=== PATIENT | female | born 1935 | race Caucasian/White ===

== ENCOUNTER 2016-09-25 09:40 | Emergency (ER) | payer MEDICARE, BC ==
[2016-09-25] MEDS ORDERED: HYDROmorphone HCL 1 MG/ML SYR ONE ×2 (10:13→11:05)
[2016-09-25 10:40] LABS: BASOPHILS 0.5 % (0.0-2.0); EOSINOPHILS# 0.1 X 10^3uL (0.0-0.4); HEMATOCRIT 40.1 % (36.0-48.0); HEMOGLOBIN 13.6 g/dL (12.0-16.0); LYMPHOCYTES 18.3 % (20.0-40.0); LYMPHOCYTES# 1.1 X 10^3uL (0.8-3.8); MEAN PLATELET VOLUME 7.7 fL (7.4-10.4); MONOCYTES 6.1 % (2.0-10.0); MONOCYTES# 0.4 X 10^3uL (0.2-1.0); NEUTROPHILS 74.1 % (54.0-75.0); NEUTROPHILS# 4.1 X 10^3uL (2.6-6.7); PLATELET COUNT 289 X 10^3uL (130-440); RED BLOOD COUNT 4.14 X 10^6uL (4.20-6.10); RED CELL DISTRIBUTION WIDTH 13.4 % (11.5-14.5); WHITE BLOOD COUNT 5.7 X 10^3uL (3.9-10.7)
[2016-09-25 10:43] LABS: ALBUMIN 4.2 g/dL (3.5-5.0); ALKALINE PHOSPHATASE 61 U/L (38-126); ALT 66 U/L (9-52); AST 57 U/L (14-36); BILIRUBIN, DIRECT 0.4 mg/dL (0.0-0.4); BILIRUBIN, TOTAL 1.2 mg/dL (0.2-1.3); BLOOD UREA NITROGEN 17 mg/dL (7-17); CALCIUM 9.6 mg/dL (8.4-10.2); CHLORIDE 92 mmol/L (98-107); CREATININE 0.6 mg/dL (0.5-1.0); GLUCOSE 97 mg/dL (70-100); LIPASE 367 U/L (23-300); POTASSIUM 3.4 mmol/L (3.5-5.1); SODIUM 132 mmol/L (137-145); TOTAL PROTEIN 7.2 g/dL (6.3-8.2)
[2016-09-25 12:16] LABS: URINE MUCUS NONE SEEN (Up to 25%); URINE RBC NONE SEEN (0-5/hpf)
--- NOTE | 2016-09-25 12:19 | CT REPORT ---
Radiology report CT abdomen pelvis with contrast Study dated September 25, 2016 PROCEDURE: IV contrast was administered without complication. Imaging to the abdomen and pelvis was p erformed. CLINICAL HISTORY: Epigastric prominence, irritable bowel syndrome FINDINGS: There are no prior studies. The gallbladder is absent. Within the right lobe of the liver, posteriorly there is an oval hyperdens e area measuring 27 x 16 mm. This could be a hemangioma but is somewhat indeterminate. The remainder of the liver is unremarkable. The spleen, pancreas, adrenal glands, and kidneys appear normal. No hyd ronephrosis. Common bile duct is prominent, but probably within normal limits for the patient's age a nd postcholecystectomy state. Lung bases are clear. The aorta is normal in size. No adenopathy, free fluid, or free air. The bladde r is unremarkable. The uterus appears absent. The adnexal regions appear normal. Minimally dilated fluid-filled small bowel loops in the right side of the pelvis are noted. Bowel is otherwise unremarkable except for sigmoid diverticulosis. No definitive findings of acute diverticuli tis, or obstruction. There is normal alignment to the lumbar spine. The epigastric prominence likely corresponds to the superficial abdominal aorta, which is normal in s ize but shows moderate atherosclerotic change. IMPRESSION: Oval enhancing mass in the right lobe of the liver possibly hemangioma but somewhat indet erminate. This measures 27 x 16 mm. Minimally prominent fluid-filled small bowel loops in the right side of the pelvis, but no evidence f or bowel obstruction. Diverticulosis without acute diverticulitis. Report called to Dr. jacobs. Final Electronic Signature: This report was electronically signed by Lanre Muñoz MD on 09/25/2016 1 2:17 PM. oren /
[2016-09-25 12:31] LABS: URINE APPEARANCE SLIGHTLY CLOUDY; URINE COLOR YELLOW
[2016-09-25 12:32] LABS: URINE BILIRUBIN NEGATIVE (NEGATIVE); URINE BLOOD NEGATIVE (NEGATIVE); URINE GLUCOSE NORMAL (NEGATIVE); URINE KETONE NEGATIVE (NEGATIVE); URINE LEUKOCYTE ESTERASE 25 WBC/uL (1+) (NEGATIVE); URINE NITRITE POSITIVE (NEGATIVE); URINE PH 5.5 (5-7); URINE PROTEIN NEGATIVE (NEG - TRACE); URINE SQUAMOUS EPITHELIAL CELL 0-5/hpf (<= 15/hpf); URINE UROBILINOGEN NORMAL (NEG-1mg/dL)
--- NOTE | 2016-09-25 12:55 | ER NURSING DOCUMENTATION ---
Nurse's Notes [facility] Name:Kaylie Goldman Age:81 yrs Sex:Female :1935 Arrival Date:09/25/2016 Time:09:40 Bed4 Private MD:Irene Arias Diagnosis:Abdominal Pain, Epigastric Presentation: 09/25 09:43 Presenting complaint: Patient states: ABD pain, "feels like a golfball moving up and tg down." Chronic pain in this area, but now it is worse. Transition of care: patient was not received from another setting of care. 09:43 Acuity: MARIE 2 tg 09:43 Method Of Arrival: Private Vehicle tg Triage Assessment: 09:45 General: Appears slender, uncomfortable, Behavior is cooperative, pleasant. Pain: tg Complains of pain in left upper quadrant. Neuro: Level of Consciousness is awake, alert. Cardiovascular: Capillary refill < 3 seconds. Respiratory: Airway is patent Respiratory effort is even, unlabored. GI: Reports upper abdominal pain, normal bowel habits, Denies constipation, diarrhea, intolerance of fluids, intolerance of food, nausea, vomiting. Derm: Skin is pink, warm & dry. Historical: - Allergies: Sulfa (Sulfonamide Antibiotics); Lidoderm; PAROXETINE DERIVATIVES; - Home Meds: 1. eszopiclone oral 2. sodium chloride oral 3. Lisinopril Oral 4. polyethylene glycol 3350 oral 5. MVI - PMHx: pseudophakia; chronic LUQ pain; IBS; gastroparesis; HTN; - PSHx: None; - Tetanus: < 10 years. - Ebola Screening: : Patient negative for fever greater than or equal to 101.5 degrees Fahrenheit, and additional compatible Ebola Virus Disease symptoms. Patient denies exposure to infectious person. Patient denies travel to an Ebola-affected area in the 21 days before illness onset. No symptoms or risks identified at this time. . - Immunization history: Flu Vaccine < 1 year. - Social history: Smoking status: Patient states was never smoker of tobacco. Screenin:38 Infectious Disease Risk Unable to Obtain. Abuse screen: Denies threats or abuse. Denies tg injuries from another. Nutritional screening: Had unintentional weight loss of 10 pounds or more. Assessment: 12:11 Reassessment: Pt is feeling much better, but restless. Walking in room with family tg assistance. . 09/26 13:38 Reassessment: Prescription called in to [facility] for Keflex [address] amari Jerez. Vital Signs: 09/25 09:48 BP 156 / 75; Pulse 76; Resp 22; Temp 97.6(O); Pulse Ox 96% ; Weight 39.92 kg (R); tg Height 5 ft. 3 in. (160.02 cm); Pain 8/10; 12:52 BP 140 / 76; Pulse 74; Resp 16; Pulse Ox 93% on R/A; Pain 3/10; tg 09:48 Body Mass Index 15.59 (39.92 kg, 160.02 cm) tg ED Course: 09:40 Patient arrived in ED. ds 09:41 Irene Arias MD is Private Physician. ds 09:42 Alistair Frank RN is Primary Nurse. tg 09:44 Triage completed. tg 09:53 EKG done. (by ED staff). Reviewed by Marlon Reyes MD. tg 10:03 Marlon Reyes MD is Attending Physician. sc 10:26 Inserted peripheral IV: 20 gauge in left antecubital area and blood collected. Oxygen tg Oxygen administration via nasal cannula @ 2L/min. 10:39 Valuables Remains with patient Side rails up X 1. Adult w/ patient. Cardiac Monitoring tg On for Nurse Monitoring only. Pulse Ox - RN Monitoring Only. Diet: Patient is NPO. 11:37 Patient moved to [place]. ms 11:56 Patient moved back from [place]. ms 12:17 Irene Arias MD is Referral Physician. sc Administered Medications: 10:20 Drug: Dilaudid 0.5 mg; Route: IVP; Site: left antecubital; tg 10:32 Follow up: Response: Pain is decreased tg 10:26 Drug: NS 0.9% 1000 ml; Route: IV; Rate: 30 ml/hr; Site: left antecubital; tg 12:49 Follow up: IV Status: Completed infusion; IV Intake: 60ml tg 11:01 Drug: Dilaudid 0.5 mg; Route: IVP; Site: left antecubital; tg 12:32 Follow up: Response: Pain is decreased tg 11:15 Drug: NS 0.9% 1000 ml; Route: IV; Rate: 150 ml/hr; Site: left antecubital; Delivery: tg [place] Tubing; 12:49 Follow up: IV Status: Completed infusion; IV Intake: 500ml tg Intake: 12:49 IV: 60ml; Total: 60ml. tg 12:49 IV: 500ml; Total: 560ml. tg Output: 12:50 Urine: 300ml (Voided); Total: 300ml. tg Outcome: 12:19 Discharge ordered by . de 12:52 Discharged to home ambulatory, with family. tg 12:52 Condition: stable 12:52 Discharge Assessment: Patient awake, alert and oriented x 3. No cognitive and/or functional deficits noted. Patient verbalized understanding of disposition instructions. 12:52 Instructed on discharge instructions, follow up and referral plans. 12:52 IV D/Anthony 12:54 Patient left the ED. tg 09/26 13:38 Discharge F/U Call: Spoke with: patient. guardian of pt. Overall Care on a scale of ma 1-10 with 10 being the best care, you rate our care as: Other comments: Care was very good per family member Pt very [place] and unable to speak on phone Rx called in and daughter instructed on medication and UTI Specific RX noted on chart Signatures: Alistair Frank RN RN Yudy Kuo RN RN amari Dent, Michelle, Reg Reg Marlon Manzo MD MD de Khadijah Claudio ms
--- NOTE | 2016-09-25 12:55 | ER PHYSICIAN DOCUMENTATION ---
Physician Documentation [facility] Name:Kaylie Goldman Age:81 yrs Sex:Female :1935 Arrival Date:09/25/2016 Time:09:40 Bed4 Private MD:Irene Arias ED, Scott Disposition: 09/25/16 12:19 Discharged to Home/Self Care. Impression: Abdominal Pain, Epigastric. - Condition is Good. - Discharge Instructions: ABDOMINAL PAIN, Unknown Cause, (Female). - Medical Reconciliation form form. - Follow up: Irene Arias MD; When: 2 - 3 days; Reason: Worsening of condition, Continuance of care. - Problem is an ongoing problem. - Symptoms have improved. HPI: 09/25 12:11 This 81 yrs old Female presents to ER via Private Vehicle with complaints of sc Abdominal Pain. 12:11 The patient presents with abdominal pain in the left upper quadrant. Onset: The sc symptoms/episode began/occurred 50 year(s) ago, and became worse last night. The symptoms do not radiate. Associated signs and symptoms: Pertinent positives: constipation, epigastric knot with pain. The symptoms are described as vague. Modifying factors: The symptoms are alleviated by nothing. The patient has experienced similar episodes in the past, chronically. The patient has been recently seen by a physician: the patient's primary care provider. multiple workups, IBS with constipation, gastroparesis, anxiety, narcotic dependence in past. Historical: - Allergies: Sulfa (Sulfonamide Antibiotics); Lidoderm; PAROXETINE DERIVATIVES; - Home Meds: 1. eszopiclone oral 2. sodium chloride oral 3. Lisinopril Oral 4. polyethylene glycol 3350 oral 5. MVI - PMHx: pseudophakia; chronic LUQ pain; IBS; gastroparesis; HTN; - PSHx: None; - Tetanus: < 10 years. - Ebola Screening: : Patient negative for fever greater than or equal to 101.5 degrees Fahrenheit, and additional compatible Ebola Virus Disease symptoms. Patient denies exposure to infectious person. Patient denies travel to an Ebola-affected area in the 21 days before illness onset. No symptoms or risks identified at this time. . - Immunization history: Flu Vaccine < 1 year. - Social history: Smoking status: Patient states was never smoker of tobacco. ROS: 12:13 Constitutional: Negative for fever, chills, and weight loss. sc Eyes: Negative for injury, pain, redness, and discharge. ENT: Negative for injury, pain, and discharge. Neck: Negative for injury, pain, and swelling. Cardiovascular: Negative for chest pain, palpitations, and edema. Respiratory: Negative for shortness of breath, cough, wheezing, and pleuritic chest pain. Back: Negative for injury and pain. MS/Extremity: Negative for injury and deformity. Skin: Negative for injury, rash, and discoloration. 12:13 Neuro: Negative for headache, weakness, numbness, tingling, and seizure. sc 12:13 Abdomen/GI: Positive for abdominal pain. 12:13 Psych: Positive for anxiety. Exam: Constitutional: This is a well developed, well nourished patient who is awake, alert, and in no acute distress. Head/Face: Normocephalic, atraumatic. Eyes: Pupils equal round and reactive to light, extra-ocular motions intact. Lids and lashes normal. Conjunctiva and sclera are non-icteric and not injected. Cornea within normal limits. Periorbital areas with no swelling, redness, or edema. ENT: Nares patent. No nasal discharge, no septal abnormalities noted. Tympanic membranes are normal and external auditory canals are clear. Oropharynx with no redness, swelling, or masses, exudates, or evidence of obstruction, uvula midline. Mucous membranes moist. Neck: Trachea midline, no thyromegaly or masses palpated, and no cervical lymphadenopathy. Supple, full range of motion without nuchal rigidity, or vertebral point tenderness. No meningismus. Chest/axilla: Normal chest wall appearance and motion. Nontender with no deformity. No lesions are appreciated. Cardiovascular: Regular rate and rhythm with a normal S1 and S2. No gallops, murmurs, or rubs. Normal PMI, no JVD. No pulse deficits. Respiratory: Lungs have equal breath sounds bilaterally, clear to auscultation and percussion. No rales, rhonchi or wheezes noted. No increased work of breathing, no retractions or nasal flaring. Back: No spinal tenderness. No costovertebral tenderness. Full range of motion. 12:13 Skin: Warm, dry with normal turgor. Normal color with no rashes, no lesions, and no sc evidence of cellulitis. 12:13 Abdomen/GI: Inspection: abdomen appears normal, Bowel sounds: normal, Palpation: rebound tenderness, is not appreciated, no appreciated organomegaly, aorta palpable, grossly nl, identified as knot in patient who recently lost 10 pounds, Liver: no appreciated palpable abnormalities. Vital Signs: 09:48 BP 156 / 75; Pulse 76; Resp 22; Temp 97.6(O); Pulse Ox 96% ; Weight 39.92 kg (R); tg Height 5 ft. 3 in. (160.02 cm); Pain 8/10; 12:52 BP 140 / 76; Pulse 74; Resp 16; Pulse Ox 93% on R/A; Pain 3/10; tg 09:48 Body Mass Index 15.59 (39.92 kg, 160.02 cm) tg MDM: 10:54 Patient medically screened. wi 12:14 Differential diagnosis: AAA, bowel obstruction, gastritis, Irritable bowel syndrome. wi Data reviewed: vital signs, nurses notes, old medical records, lab test result(s), radiologic studies, CT scan, and as a result, I will discharge patient. Counseling: I had a detailed discussion with the patient and/or guardian regarding: the historical points, exam findings, and any diagnostic results supporting the discharge/admit diagnosis, lab results, radiology results, the need for outpatient follow up, with the patient's primary care provider. 09/25 10:42 Order name: CBC AUTO DIF, MDIF/RMOR IF IND; Complete Time: 10:55 EDGA 09/25 10:54 Interpretation: Normal. wi 09/25 10:44 Order name: LACTATE; Complete Time: 10:55 EDGA 09/25 10:54 Interpretation: Normal. wi 09/25 10:44 Order name: BASIC METABOLIC PANEL; Complete Time: 10:55 EDMS 09/25 10:54 Interpretation: Abnormal: SODIUM 132; POTASSIUM 3.4. wi 09/25 10:44 Order name: HEPATIC PANEL; Complete Time: 10:55 EDMS 09/25 10:54 Interpretation: Abnormal: ALT 66; AST 57. wi 09/25 10:44 Order name: LIPASE; Complete Time: 10:55 EDGA 09/25 10:55 Interpretation: Abnormal: LIPASE 367. wi 09/25 12:32 Order name: UA W/ MICRO -CULTURE IF IND; Complete Time: 12:37 EDMS 09/25 12:20 Order name: CAT SCAN; ABD/PEL W 70081; Complete Time: 12:37 EDMS 09/25 10:00 Order name: NPO; Complete Time: 10:25 tg 09/25 10:26 Order name: Oxygen; Complete Time: 10:26 tg 09/25 11:02 Order name: 12-lead EKG; Complete Time: 11:02 tg Dispensed Medications: 10:20 Drug: Dilaudid 0.5 mg; Route: IVP; Site: left antecubital; tg 10:32 Follow up: Response: Pain is decreased tg 10:26 Drug: NS 0.9% 1000 ml; Route: IV; Rate: 30 ml/hr; Site: left antecubital; tg 12:49 Follow up: IV Status: Completed infusion; IV Intake: 60ml tg 11:01 Drug: Dilaudid 0.5 mg; Route: IVP; Site: left antecubital; tg 12:32 Follow up: Response: Pain is decreased tg 11:15 Drug: NS 0.9% 1000 ml; Route: IV; Rate: 150 ml/hr; Site: left antecubital; Delivery: tg [place] Tubing; 12:49 Follow up: IV Status: Completed infusion; IV Intake: 500ml tg Signatures: Alistair Farnk RN RN tg Marlon Reyes MD MD wi
== END 2016-09-25 12:54 | disposition home or self-care (01) ==
LOC: ER 09:40
DX: R10.13 Epigastric pain (principal); R94.5 Abnormal results of liver function studies; N39.0 Urinary tract infection, site not specified; B96.1 Klebsiella pneumoniae [K. pneumoniae] as the cause of diseases classified elsewhere; R93.2 Abnormal findings on diagnostic imaging of liver and biliary tract; I49.1 Atrial premature depolarization; I10 Essential (primary) hypertension; Z79.899 Other long term (current) drug therapy
CPT/HCPCS: 74177; 80048; 80076; 81001; 83605; 83690; 85025; 87077; 87086; 87186; 93005; 96361; 96374; 96376; 99285; J1170

== ENCOUNTER 2016-10-10 11:17 | Observation (INO) | payer MEDICARE, BC ==
[2016-10-10] MEDS ORDERED: HYDROmorphone HCL 1 MG/ML SYR ONE ×2 (11:47→12:04)
[2016-10-10 11:57] LABS: ALBUMIN 4.3 g/dL (3.5-5.0); ALKALINE PHOSPHATASE 232 U/L (38-126); ALT 287 U/L (9-52); AST 159 U/L (14-36); BASOPHILS 0.4 % (0.0-2.0); BILIRUBIN, DIRECT 0.2 mg/dL (0.0-0.4); BILIRUBIN, TOTAL 1.6 mg/dL (0.2-1.3); BLOOD UREA NITROGEN 19 mg/dL (7-17); CALCIUM 9.5 mg/dL (8.4-10.2); CHLORIDE 93 mmol/L (98-107); CREATININE 0.7 mg/dL (0.5-1.0); EOSINOPHILS# 0.1 X 10^3uL (0.0-0.4); GLUCOSE 115 mg/dL (70-100); HEMATOCRIT 39.7 % (36.0-48.0); HEMOGLOBIN 13.6 g/dL (12.0-16.0); LIPASE 223 U/L (23-300); LYMPHOCYTES 21.1 % (20.0-40.0); LYMPHOCYTES# 1.5 X 10^3uL (0.8-3.8); MEAN CELL VOLUME 97.9 fL (80.0-100.0); MEAN CORPUS. HGB CONCENTRATION 34.3 g/dL (32.0-36.0); MEAN CORPUSCULAR HEMOGLOBIN 33.6 pg (29.0-35.0); MEAN PLATELET VOLUME 7.9 fL (7.4-10.4); MONOCYTES 6.2 % (2.0-10.0); MONOCYTES# 0.4 X 10^3uL (0.2-1.0); NEUTROPHILS 71.3 % (54.0-75.0); PLATELET COUNT 322 X 10^3uL (130-440); POTASSIUM 3.7 mmol/L (3.5-5.1); RED BLOOD COUNT 4.06 X 10^6uL (4.20-6.10); RED CELL DISTRIBUTION WIDTH 13.9 % (11.5-14.5); SODIUM 128 mmol/L (137-145); TOTAL PROTEIN 7.2 g/dL (6.3-8.2)
[2016-10-10 13:46] LABS: URINE MUCUS NONE SEEN (Up to 25%); URINE RBC NONE SEEN (0-5/hpf); URINE SQUAMOUS EPITHELIAL CELL NONE SEEN (<= 15/hpf); URINE WBC NONE SEEN (0-4/hpf)
[2016-10-10 13:56] LABS: URINE APPEARANCE CLEAR; URINE BACTERIA NONE SEEN (<10/hpf); URINE BILIRUBIN NEGATIVE (NEGATIVE); URINE BLOOD TRACE (NEGATIVE); URINE COLOR YELLOW; URINE GLUCOSE NORMAL (NEGATIVE); URINE KETONE 5mg/dL (NEGATIVE); URINE LEUKOCYTE ESTERASE NEGATIVE (NEGATIVE); URINE NITRITE NEGATIVE (NEGATIVE); URINE PROTEIN NEGATIVE (NEG - TRACE); URINE SPECIFIC GRAVITY 1.015 (0.001-1.035); URINE SPERM NONE SEEN; URINE UROBILINOGEN 0.2mg/dL (Normal) (NEG-1mg/dL)
[2016-10-10] MEDS ORDERED: LORazepam 2 MG/ML INJ ONE (14:43)
--- NOTE | 2016-10-10 15:04 | ER PHYSICIAN DOCUMENTATION ---
Physician Documentation [facility] Name:Kaylie Goldman Age:81 yrs Sex:Female :1935 Arrival Date:10/10/2016 Time:11:17 Bed4 Private MD:Irene Arias ED, Scott Disposition: 10/10/16 14:45 Admit ordered for Andrés Vasquez. Preliminary diagnosis are Hyponatremia, Abnormal Level of Alkaline Phosphatase. - Bed requested for Medical/Surgical. - Condition is Fair. - Problem is an ongoing problem. - Symptoms have improved. 23 HR OBS Yes HPI: 10/10 14:25 This 81 yrs old Female presents to ER with complaints of Abdominal Pain. sc 14:25 The patient presents with abdominal pain that is diffuse. Onset: The symptoms/episode sc began/occurred at an unknown time. The symptoms do not radiate. Associated signs and symptoms: Pertinent positives: anorexia, nausea. The symptoms are described as crampy. The patient has experienced similar episodes in the past, chronically. Historical: - Allergies: Sulfa (Sulfonamide Antibiotics); Lidoderm; PAROXETINE DERIVATIVES; - Home Meds: 1. sodium chloride oral 2. Lisinopril Oral 3. polyethylene glycol 3350 oral 4. MVI 5. hydrocodone-acetaminophen oral 6. Lyrica Oral - PMHx: pseudophakia; chronic LUQ pain; IBS; gastroparesis; HTN; Abdominal Pain, Epigastric (September 25, 2016); - PSHx: RAMIRO; Cataract surgery; - Tetanus: unknown. - Ebola Screening: : No symptoms or risks identified at this time. . - Social history: Smoking status: Patient states former smoker of tobacco. Patient/guardian denies using alcohol. - Immunization history: Flu Vaccine < 1 year. ROS: 14:28 Constitutional: Negative for fever, chills, and weight loss. sc Eyes: Negative for injury, pain, redness, and discharge. ENT: Negative for injury, pain, and discharge. Neck: Negative for injury, pain, and swelling. Cardiovascular: Negative for chest pain, palpitations, and edema. Respiratory: Negative for shortness of breath, cough, wheezing, and pleuritic chest pain. Back: Negative for injury and pain. MS/Extremity: Negative for injury and deformity. Skin: Negative for injury, rash, and discoloration. 14:28 Neuro: Negative for headache, weakness, numbness, tingling, and seizure. sc 14:28 Abdomen/GI: Positive for abdominal pain, nausea, anorexia. Exam: Constitutional: This is a well developed, well nourished patient who is awake, alert, and in no acute distress. Head/Face: Normocephalic, atraumatic. Eyes: Pupils equal round and reactive to light, extra-ocular motions intact. Lids and lashes normal. Conjunctiva and sclera are non-icteric and not injected. Cornea within normal limits. Periorbital areas with no swelling, redness, or edema. ENT: Nares patent. No nasal discharge, no septal abnormalities noted. Tympanic membranes are normal and external auditory canals are clear. Oropharynx with no redness, swelling, or masses, exudates, or evidence of obstruction, uvula midline. Mucous membranes moist. Neck: Trachea midline, no thyromegaly or masses palpated, and no cervical lymphadenopathy. Supple, full range of motion without nuchal rigidity, or vertebral point tenderness. No meningismus. Chest/axilla: Normal chest wall appearance and motion. Nontender with no deformity. No lesions are appreciated. Cardiovascular: Regular rate and rhythm with a normal S1 and S2. No gallops, murmurs, or rubs. Normal PMI, no JVD. No pulse deficits. Respiratory: Lungs have equal breath sounds bilaterally, clear to auscultation and percussion. No rales, rhonchi or wheezes noted. No increased work of breathing, no retractions or nasal flaring. Back: No spinal tenderness. No costovertebral tenderness. Full range of motion. 14:28 Neuro: Awake and alert, GCS 15, oriented to person, place, time, and situation. sc Cranial nerves II-XII grossly intact. Motor strength 5/5 in all extremities. Sensory grossly intact. Cerebellar exam normal. Normal gait. 14:28 Abdomen/GI: Inspection: abdomen appears normal, Bowel sounds: normal, Palpation: mild abdominal tenderness, in all quadrants. Vital Signs: 12:46 BP 136 / 83; Pulse 123; Resp 18; Pulse Ox 97% ; ew MDM: 11:22 Patient medically screened. sc 14:41 Differential diagnosis: bowel obstruction, Irritable bowel syndrome, Mesenteric sc ischemia or infarction, non-specific abd pain. Data reviewed: vital signs, nurses notes, old medical records, lab test result(s), and as a result, I will admit patient. Counseling: I had a detailed discussion with the patient and/or guardian regarding: the historical points, exam findings, and any diagnostic results supporting the discharge/admit diagnosis, lab results, the need for further work-up and treatment in the hospital. Medication response: The patient's symptoms have improved. Response to treatment: the patient's symptoms have markedly improved after treatment. 10/10 11:58 Order name: CBC AUTO DIF, MDIF/RMOR IF IND; Complete Time: 12:24 EDMS 10/10 12:11 Interpretation: Normal. ma 10/10 11:58 Order name: BASIC METABOLIC PANEL; Complete Time: 12:24 EDMS 10/10 12:12 Interpretation: Abnormal: SODIUM 128; CHLORIDE 93; BLOOD UREA NITROGEN 19. ma 10/10 11:58 Order name: HEPATIC PANEL; Complete Time: 12:24 EDMS 10/10 12:16 Interpretation: Abnormal. ma 10/10 11:58 Order name: LIPASE; Complete Time: 14:16 EDMS 10/10 11:59 Order name: LACTATE; Complete Time: 12:24 EDMS 10/10 12:24 Interpretation: Normal. ma 10/10 13:57 Order name: UA W/ MICRO -CULTURE IF IND; Complete Time: 14:16 EDDE 10/10 11:23 Order name: Urine Dip; Complete Time: 14:42 ma Dispensed Medications: 11:40 Drug: NS 0.9% 1000 ml; Route: IV; Rate: 150 ml/hr; Site: left antecubital; Delivery: ma Pump; 15:04 Follow up: IV Status: Infusion continued upon admission; IV Intake: 460ml nm 11:46 Drug: Dilaudid 1 mg; Route: IVP; Rate: per protocol; Infused Over: 3 mins; Site: left nm antecubital; 11:57 Follow up: Response: Pain is unchanged, physician notified nm 11:58 Drug: Dilaudid 1 mg; Route: IVP; Rate: per protocol; Infused Over: 3 mins; Site: left nm antecubital; 14:42 Follow up: Response: Pain is decreased nm 14:35 Drug: Ativan 0.5 mg; Route: IVP; Rate: per protocol; Infused Over: 3 mins; Site: left ma antecubital; 15:05 Follow up: Response: Marked relief of symptoms ma Signatures: Yudy Kuo, Marlon Morrison RN, ma, MD MD ma
--- NOTE | 2016-10-10 15:04 | ER NURSING DOCUMENTATION ---
Nurse's Notes [facility] Name:Kaylie Goldman Age:81 yrs Sex:Female :1935 Arrival Date:10/10/2016 Time:11:17 Bed4 Private MD:Irene Arias Diagnosis:Hyponatremia;Abnormal Level of Alkaline Phosphatase Presentation: 10/10 11:17 Presenting complaint: states: Pt with complicated history of abdominal pain for ma one year Mult Gastro workups by mult providers No vomiting or diarrhea. Transition of care: Home. 11:17 Method Of Arrival: Private Vehicle ma 11:26 Acuity: MARIE 3 ma 14:28 Acuity: MARIE 2 lpr Triage Assessment: 11:17 General: Appears distressed, slender, well groomed, Behavior is agitated, anxious. ma Pain: Complains of pain in abdomen. Historical: - Allergies: Sulfa (Sulfonamide Antibiotics); Lidoderm; PAROXETINE DERIVATIVES; - Home Meds: 1. sodium chloride oral 2. Lisinopril Oral 3. polyethylene glycol 3350 oral 4. MVI 5. hydrocodone-acetaminophen oral 6. Lyrica Oral - PMHx: pseudophakia; chronic LUQ pain; IBS; gastroparesis; HTN; Abdominal Pain, Epigastric (September 25, 2016); - PSHx: RAMIRO; Cataract surgery; - Tetanus: unknown. - Ebola Screening: : No symptoms or risks identified at this time. . - Social history: Smoking status: Patient states former smoker of tobacco. Patient/guardian denies using alcohol. - Immunization history: Flu Vaccine < 1 year. Screenin:52 Infectious Disease Risk None. Abuse screen: Denies threats or abuse. Nutritional ma screening: No deficits noted. Assessment: 11:47 Pain: Complains of pain in abdomen. GI: Bowel sounds diminished in right upper ma quadrant, left upper quadrant, right lower quadrant and left lower quadrant Abd is soft X 4 quads. Vital Signs: 12:46 BP 136 / 83; Pulse 123; Resp 18; Pulse Ox 97% ; ew ED Course: 11:19 Patient arrived in ED. ds 11:19 Irene Arias MD is Private Physician. ds 11:22 Marlon Reyes MD is Attending Physician. sc 11:26 Yudy Kuo RN is Primary Nurse. ma 11:26 Triage completed. ma 11:52 Valuables Given to family. Patient has correct armband on for positive identification. ma Placed in gown. Bed in low position. Side rails up X2. 12:58 Patient ASSISTED PT. TO/FROM THE BATHROOM. SHE WAS UNABLE TO VOID IN THE HAT, SO A ew URINE SAMPLE WAS UNOBTAINABLE. 14:44 Andrés Vasquez MD is Admitting Physician. sc Administered Medications: 11:40 Drug: NS 0.9% 1000 ml; Route: IV; Rate: 150 ml/hr; Site: left antecubital; Delivery: ma Pump; 15:04 Follow up: IV Status: Infusion continued upon admission; IV Intake: 460ml ma 11:46 Drug: Dilaudid 1 mg; Route: IVP; Rate: per protocol; Infused Over: 3 mins; Site: left or antecubital; 11:57 Follow up: Response: Pain is unchanged, physician notified ma 11:58 Drug: Dilaudid 1 mg; Route: IVP; Rate: per protocol; Infused Over: 3 mins; Site: left or antecubital; 14:42 Follow up: Response: Pain is decreased ma 14:35 Drug: Ativan 0.5 mg; Route: IVP; Rate: per protocol; Infused Over: 3 mins; Site: left or antecubital; 15:05 Follow up: Response: Marked relief of symptoms ma Intake: 15:04 IV: 460ml; Total: 460ml. ma Outcome: 11:17 Condition: stable ma 14:45 Decision to Admit by Provider. pr 14:45 Admitted to Med/surg ma 14:45 Instructed on need to admit 15:03 Patient left the ED. ma Signatures: Yudy Kuo, RN Michelle Burger ma, Reg Reg Marlon Manzo MD MD sc Roberts, Leslie, RN RN lpr Wooley, Erin ew
[2016-10-10] MEDS ORDERED: HOME MEDICATION LIST NEEDED 1 EA EACH MC ONE (15:05)
[2016-10-10] MEDS ORDERED: NORMAL SALINE 1,000 ML IV SCH (16:00)
[2016-10-10] MEDS ORDERED: POLYVINYL ALCOHOL 1.4% OPHTH 75 DROP/15 ML BTL EACHEYE PRN (16:45)
--- NOTE | 2016-10-10 18:00 | RADIOLOGY REPORT ---
A single view of the chest demonstrates the heart, vessels and lungs to be unremarkable. No infiltrate, fluid or pneumothorax is seen. Two views of the abdomen demonstrate a normal bowel gas pattern. Gas and stool is seen through the colon. No small bowel gas is seen. No calcification or free air identified. Post surgical changes are seen in the right upper quadrant. IMPRESSION: Unremarkable views of the chest and abdomen. The findings were provided to Dr. Vasquez by [facility] at 1704 hours on 2016. [facility]
[2016-10-10 18:25] VITALS: TEMP 98.6
[2016-10-10] MEDS: SODIUM CHLORIDE 1 GM TABLET PO SCH (20:20)
[2016-10-10] MEDS: LORazepam 0.5 MG TABLET PO PRN (20:20)
[2016-10-10] MEDS: HYDROmorphone HCL 1 MG/ML SYR IV PRN ×2 (20:20→23:30)
[2016-10-10] MEDS: POLYETHYLENE GLYCOL 3350 17 GM POWD.PACK PO SCH (20:33)
[2016-10-10 23:25] VITALS: O2SAT 94
[2016-10-11] MEDS: HYDROmorphone HCL 1 MG/ML SYR IV PRN ×4 (01:30→12:02)
[2016-10-11 03:30] VITALS: PULSE 88; RESP 14
[2016-10-11 05:58] VITALS: BP 124/70
[2016-10-11] MEDS ORDERED: PANTOPRAZOLE 40 MG TABLET PO SCH (06:30)
[2016-10-11 07:13] LABS: IRON 96 ug/dL (37-170); TOTAL IRON BINDING CAPACITY 237 ug/mL (250-400); TRANSFERRIN 159 mg/dL (206-381); TRANSFERRIN SATURATION 41 % (14-50)
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
[2016-10-11 08:10] LABS: ERYTHROCYTE SEDIMENTATION RATE 4 MM/HR (0-20)
[2016-10-11] MEDS: LORazepam 0.5 MG TABLET PO PRN (08:13)
--- NOTE | 2016-10-11 08:22 | PROGRESS NOTE: IM APSO ---
Assessment and Plan - Date of Encounter Date of Encounter: 10/11/16 (1) Abnormal finding on liver function Status: Acute Assessment and plan: Will await the results of imaging before deciding on a plan. Patient appears to be very comfortable and relaxed, in spite of her complaints of pain and anxiety. 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 She was weaned off them last year, but constantly demands them in any case. (2) Anorexia nervosa Status: Acute Assessment and plan: This has been present since childhood. I have researched an eating disorders center for the patient, but at age 81, I am not sure they are suitable environments for her. (3) Liver mass Status: Acute Assessment and plan: Noted on ultrasound; also seen on CT scan in ER 09/2016, but noted as a hemangioma, which ultrasound results are not consistent with. Patient is being transferred to an insitution where biopsy can take place if indicated. - Time Spent With Patient Total time spent with greater than 50% in coordination of care (as documented) at patient's floor/unit and/or counseling patient: 25 - 35 minutes IM: PN Subjective Interval history: Has continued to complain of abdominal pain and anxiety, resulting in the administration of Dilaudid and Ativan. She is awaiting her MRA, and I have added an MRCP to the orders, because of the obstructive pattern of the hepatic panel. However, she also has increasing levels of ALT and AST. Hepatitis panel (basic) was negative, additional studies are pending. The change in the liver enzymes are new for this patient since August. I have concerns of hepatic failure. Addendum. Patient did not tolerate MRA/MRCP and will need sedation to have these done. Ultrasound showed a liver mass, not present on report of CT abdomen at [facility] 08/2016, which suggests a rapidly growing lesion, which is concerning. Have requested transfer to [place] for ongoing care not available at this institution. General: fatigue, malaise HEENT: no headache Cardiovascular: no chest pain, no palpitations Respiratory: no SOB Gastrointestinal: abdominal pain, indigestion, bloating, nausea, constipation Genitourinary: no dysuria Musculoskeletal: pain (lower back) IM: PN Objective Exam - I&O/Vital Signs I&O: Intake & Output 10/10/16 10/11/1610/11/17 21:59 05:59 13:59 Intake Total 480 1000 Balance 480 1000 Weight 38 kg 38 kg Intake: IV 800 Left Forearm 800 Oral 480 200 Other: Urine Appearance Clear Cloudy Voiding Method Toilet # Voids 3 Vital Signs: Last Vital Signs Temp 37.0 C 10/11/16 05:57 Pulse 88 10/11/16 05:57 Resp 14 10/11/16 05:57 BP 124/70 10/11/16 05:57 Pulse Ox 94 10/11/16 05:57 Oxygen Flow Rate 2 Oxygen Delivery Method Nasal Cannula - Constitutional General appearance: Present: thin - Head Head exam: Present: normal inspection - Eye Eye exam: Present: PERRL. Absent: conjunctival injection - ENT ENT exam: Present: mucous membranes moist - Neck Neck exam: Present: full ROM - Respiratory Respiratory exam: Present: CTAB - Cardiovascular Cardiovascular exam: Present: RRR - GI/Abdominal GI/Abdominal exam: Present: hypoactive bowel sounds, soft, other (scaphoid). Absent: guarding - Extremities Exam Extremities exam: Absent: edema, tenderness - Psychiatric Psychiatric exam: Present: normal affect - Allied Health Notes Allied health notes reviewed: nursing - Lab Labs: Laboratory Last Values WBC 7.0 X 10^3uL (3.9-10.7) 10/10/16 11:35 RBC 4.06 X 10^6uL (4.20-6.10) L 10/10/16 11:35 Hgb 13.6 g/dL (12.0-16.0) 10/10/16 11:35 Hct 39.7 % (36.0-48.0) 10/10/16 11:35 MCV 97.9 fL (80.0-100.0) 10/10/16 11:35 MCH 33.6 pg (29.0-35.0) 10/10/16 11:35 MCHC 34.3 g/dL (32.0-36.0) 10/10/16 11:35 RDW 13.9 % (11.5-14.5) 10/10/16 11:35 Plt Count 322 X 10^3uL (130-440) 10/10/16 11:35 MPV 7.9 fL (7.4-10.4) 10/10/16 11:35 Neutrophils % 71.3 % (54.0-75.0) 10/10/16 11:35 Lymphocytes % 21.1 % (20.0-40.0) 10/10/16 11:35 Eosinophils % 1.0 % (0.0-6.0) 10/10/16 11:35 Basophils % 0.4 % (0.0-2.0) 10/10/16 11:35 Neutrophils # 5.0 X 10^3uL (2.6-6.7) 10/10/16 11:35 Lymphocytes # 1.5 X 10^3uL (0.8-3.8) 10/10/16 11:35 Monocytes 6.2 % (2.0-10.0) 10/10/16 11:35 Monocytes # 0.4 X 10^3uL (0.2-1.0) 10/10/16 11:35 Eosinophils # 0.1 X 10^3uL (0.0-0.4) 10/10/16 11:35 Basophils # 0.0 X 10^3uL (0.0-0.1) 10/10/16 11:35 ESR 4 MM/HR (0-20) 10/11/16 06:00 Sodium 128 mmol/L (137-145) L 10/10/16 11:35 Potassium 3.7 mmol/L (3.5-5.1) 10/10/16 11:35 Chloride 93 mmol/L (98-107) L 10/10/16 11:35 Carbon Dioxide 26 mmol/L (22-30) 10/10/16 11:35 BUN 19 mg/dL (7-17) H 10/10/16 11:35 Creatinine 0.7 mg/dL (0.5-1.0) 10/10/16 11:35 GFR Calculation Not Reportable 10/10/16 11:35 Glucose 115 mg/dL (70-100) H 10/10/16 11:35 Lactic Acid 1.1 mmol/L (0.7-2.1) 10/10/16 11:35 Calcium 9.5 mg/dL (8.4-10.2) 10/10/16 11:35 Iron 96 ug/dL (37-170) 10/11/16 06:00 TIBC 237 ug/mL (250-400) L 10/11/16 06:00 Transferrin 159 mg/dL (206-381) L 10/11/16 06:00 Transferrin % Sat 41 % (14-50) 10/11/16 06:00 Total Bilirubin 1.6 mg/dL (0.2-1.3) H 10/10/16 11:35 Direct Bilirubin 0.2 mg/dL (0.0-0.4) 10/10/16 11:35 AST 159 U/L (14-36) H 10/10/16 11:35 ALT 287 U/L (9-52) H 10/10/16 11:35 Alkaline Phosphatase 232 U/L (38-126) H 10/10/16 11:35 Total Protein 7.2 g/dL (6.3-8.2) 10/10/16 11:35 Albumin 4.3 g/dL (3.5-5.0) 10/10/16 11:35 Lipase 223 U/L (23-300) 10/10/16 11:35 Urine Color Yellow 10/10/16 13:40 Urine Appearance Clear 10/10/16 13:40 Urine pH 7.0 (5-7) 10/10/16 13:40 Ur Specific [place] 1.015 (0.001-1.035) 10/10/16 13:40 Urine Protein Negative (NEG - TRACE) 10/10/16 13:40 Urine Ketones 5mg/dl (NEGATIVE) A 10/10/16 13:40 Urine Blood Trace (NEGATIVE) A 10/10/16 13:40 Urine Nitrate Negative (NEGATIVE) 10/10/16 13:40 Urine Bilirubin Negative (NEGATIVE) 10/10/16 13:40 Urine Urobilinogen 0.2mg/dl (normal) (NEG-1mg/dL) 10/10/16 13:40 Ur Leukocyte Esterase Negative (NEGATIVE) 10/10/16 13:40 Urine RBC None seen (0-5/hpf) 10/10/16 13:40 Urine WBC None seen (0-4/hpf) 10/10/16 13:40 Ur Squamous Epith Cells None seen (<= 15/hpf) 10/10/16 13:40 Urine Bacteria None seen (<10/hpf) 10/10/16 13:40 Urine Mucus None seen (Up to 25%) 10/10/16 13:40 Urine Sperm None seen 10/10/16 13:40 Urine Glucose Normal (NEGATIVE) 10/10/16 13:40 Quality Questions - VTE Prophylaxis Assessment VTE Present on Admission?: No Patient at risk for venous thromboembolism?: Yes VTE Risk Level: Moderate Risk VTE Medical Contraindication: N/A-VTE Prophylaxis ordered
[2016-10-11] MEDS ORDERED: ONDANSETRON ODT 4 MG TAB.RAPDIS ONE (08:29)
[2016-10-11] MEDS ORDERED: LISINOPRIL 20 MG TABLET PO SCH (09:00)
[2016-10-11] MEDS: SODIUM CHLORIDE 1 GM TABLET PO SCH (09:56)
[2016-10-11] MEDS: POLYETHYLENE GLYCOL 3350 17 GM POWD.PACK PO SCH (09:58)
[2016-10-11] MEDS: ONDANSETRON HCL 4 MG/2 ML VIAL IV PRN ×2 (12:01→12:02)
[2016-10-11] MEDS ORDERED: LORazepam 2 MG/ML INJ ONE (12:07)
--- NOTE | 2016-10-11 13:08 | US REPORT ---
Routine right upper quadrant ultrasound was performed. Comparison is correlated with multiple prior CT scans. The gallbladder is not visualized, consistent with the surgical history. There is mild dilatation of the biliary tree both extrahepatic and intrahepatic. No obstructing lesion is identified. The hemangioma identified in the medial portion of the right lobe of the liver is not demonstrated on this examination. There are findings raising concern for a possible hypoechoic lesion involving the superior and lateral aspect of the right lobe of the liver measuring 1.7 cm x 2.0 cm x 2.6 cm. The liver otherwise appears unremarkable. The right kidney, pancreas and aorta appear unremarkable. IMPRESSION: 1. Mild dilatation of the biliary tree as described. No obstructing lesion is demonstrated on this examination. Further evaluation with MRCP would be of benefit. 2. Hemangioma identified on CT scanning is not demonstrated on this examination. 3. Question a 2.6 cm hypoechoic lesion involving the lateral and superior aspect of the right lobe of the liver. This region could be further evaluated with the MRCP examination. The findings were personally reviewed with Dr. Arias upon completion of the examination. WILLIAM
[2016-10-14 23:27] LABS: CERULOPLASMIN SEE COMMENTS (()); HEPATITIS A IGM ONLY Negative (Negative); HEPATITIS A TOTAL AB SEE COMMENTS (()); MITOCHONDRIAL ANTIBODIES M2 SEE COMMENTS (()); SMOOTH MUSCLE ANTIBODIES SEE COMMENTS (())
== END 2016-10-11 11:36 | disposition short-term general hospital (02) ==
LOC: ER 11:17 → IN 14:51
PROVIDERS: ADMIT Internal Medicine; ATTEND Internal Medicine
DX: E87.1 Hypo-osmolality and hyponatremia (principal); R10.84 Generalized abdominal pain; I77.4 Celiac artery compression syndrome; K58.1 Irritable bowel syndrome with constipation; F41.9 Anxiety disorder, unspecified; R31.21 Asymptomatic microscopic hematuria; K29.50 Unspecified chronic gastritis without bleeding; K31.84 Gastroparesis; F50.00 Anorexia nervosa, unspecified; K76.9 Liver disease, unspecified; R79.89 Other specified abnormal findings of blood chemistry; R91.1 Solitary pulmonary nodule; M54.5 Low back pain; I10 Essential (primary) hypertension; E83.52 Hypercalcemia; G47.00 Insomnia, unspecified; E78.00 Pure hypercholesterolemia, unspecified; R06.09 Other forms of dyspnea; Z79.899 Other long term (current) drug therapy
CPT/HCPCS: 36415; 74022; 76705; 80048; 80076; 81001; 82103; 82104; 82390; 83516; 83540; 83605; 83690; 84466; 85025; 85651; 86039; 86255; 86708; 86709; 96361; 96374; 96375; 96376; 99217; 99285; A0425; A0429; G0378; J1170; J2060; J2405; J7030